=== PATIENT | female | born 1955 | race Caucasian/White ===

== ENCOUNTER → 2016-08-07 | Outpatient (CLI) | payer BC ==
[~2016-08-07] MED LIST: NS 100 ML IV 100 ML IV ONE
[2016-08-07 09:16] LABS: CREATININE 1.07 mg/dL (0.55-1.02)
--- NOTE | 2016-08-07 10:51 | CT ---
HISTORY: Periumbilical pain Study: CT abdomen pelvis with contrast Comparison: None Technique: Axial post-contrast images with coronal and sagittal reformats. Dose reduction procedures were used with MA/kv adjusted for body size. Findings: The lung bases are clear. The liver, spleen, adrenal glands, and pancreas are within normal limits. The patient is status post cholecystectomy. The kidneys are unobstructed and without masses. No ston es are identified. No ureteral calculi are identified. The patient is status post appendectomy by khalif andino. Calcific atherosclerotic change is present in a nondilated abdominal aorta. No significant in traperitoneal or retroperitoneal lymphadenopathy is identified. There are no findings suggestive of diverticulitis or colitis. There is no evidence for ventral hernia. Examination of the pelvis demons trated no evidence for pelvic masses, pelvic fluid, or pelvic lymphadenopathy. No bladder abnormalit y is identified. No significant skeletal abnormality is identified. IMPRESSION: No significant abnormality identified Reported By:
== END ==
LOC: RAD 08:46
PROVIDERS: ATTEND Student in an Organized Health Care Education/Training Program
DX: R10.33 Periumbilical pain (principal)
CPT/HCPCS: 36415; 74177; 82565; 84520; A4222

== ENCOUNTER → 2017-04-11 | Outpatient (CLI) | payer BC | LOC: RT 13:02 | PROVIDERS: ATTEND Psychiatry & Neurology Neurology | DX: M54.16 Radiculopathy, lumbar region (principal) | CPT/HCPCS: 95910 ==